=== PATIENT | female | born 1960 | race Caucasian/White ===

== ENCOUNTER → 2017-08-16 | Emergency (ER) | payer OTHER ==
--- NOTE | 2017-08-16 06:31 | PDOC ---
History of Present Illness - General Chief Complaint: Blood Pressure Problem Stated Complaint: HIGH BP Time Seen by Provider: 08/16/17 06:09 History Source: Patient - History of Present Illness Timing/Duration: other Associated Symptoms: denies: chest pain, headaches, nausea/vomiting, shortness of breath Past History - Past Medical History Allergies/Adverse Reactions: Allergies Allergy/AdvReac Type Severity Reaction Status Date / Time No Known Allergies Allergy Verified 08/16/17 06:11 Home Medications: Ambulatory Orders Acetaminophen/Caffeine/Butalb [Fioricet -] 1 tab PO TID PRN #15 tablet 11/22/13 Thyroid Disease: No - Surgical History Abdominal Surgery: Yes (abdominoplasty) - Suicide/Smoking/Psychosocial Hx Smoking History: Never smoked Have you smoked in the past 12 months: No Information on smoking cessation initiated: No Hx Alcohol Use: No Drug/Substance Use Hx: No Substance Use Type: None *Physical Exam - Vital Signs Last Vital Signs Temp Pulse Resp BP Pulse Ox 97.1 F L 61 20 124/73 98 08/16/17 06:11 08/16/17 06:11 08/16/17 06:11 08/16/17 06:11 08/16/17 06:11 - Physical Exam General Appearance: Yes: Appropriately Dressed. No: Apparent Distress HEENT: positive: Normal Voice Neck: positive: Supple Respiratory/Chest: positive: Lungs Clear, Normal Breath Sounds. negative: Respiratory Distress Cardiovascular: positive: Regular Rate, S1, S2 Gastrointestinal/Abdominal: positive: Soft. negative: Tender Extremity: positive: Normal Inspection Integumentary: positive: Dry, Warm Neurologic: positive: Fully Oriented, Alert, Normal Mood/Affect Medical Decision Making - Medical Decision Making 08/16/17 06:26 T7-year-old female, history of hypertension on hydrochlorothiazide here for evaluation of her blood pressure. Patient states for the past several days. Her blood pressure has been between 150s -170s/50s-60s. States she was concerned because systolic BP was elevated and became anxious, so decided to come in to be evaluated. Denies any headache, dizziness, nausea, vomiting, focal weakness, chest pain or shortness of breath. Patient well-appearing and stable w/ BP 124/73, with unremarkable exam. Patient told that from an emergency room standpoint that there was no intervention necessary as her blood pressure is currently normal and she is asymptomatic. Patient told to record numbers and follow-up with her PMD in the next week to 2. Reasons to return to ER. Discussed with patient. *DC/Admit/Observation/Transfer Diagnosis at time of Disposition: Transient elevated blood pressure - Discharge Dispostion Disposition: HOME Condition at time of disposition: Good - Referrals - Patient Instructions Printed Discharge Instructions: How to Monitor Your Blood Pressure at Home Additional Instructions: Please follow-up with their doctor in the next week or 2 to discuss your blood pressure. Return to ER for worsening of symptoms as discussed in the ED - Post Discharge Activity
[2017-08-16 06:40] VITALS: BP 124/73; PULSE 61; TEMP 97.1; BMI 28.3
== END | disposition home or self-care (01) ==
LOC: JER 05:47
DX: R03.0 Elevated blood-pressure reading, without diagnosis of hypertension (principal)
CPT/HCPCS: 99281-25